=== PATIENT | male | born 1985 | race Caucasian/White ===

== ENCOUNTER 2018-02-11 22:24 | Emergency (ER) | payer OTHER ==
[~2018-02-11 22:24] MED LIST: AMLO-111 PO; BUPR-474 PO; CEPH-13 PO; FLUO-177 PO; KET10 PO; LOSA100T69 PO; PER PO; TRAM-420 PO
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
[2018-02-11 22:34] VITALS: BP 140/94
[2018-02-11] MEDS ORDERED: SERT-173 PO (22:40)
[2018-02-11 23:06] LABS: PLATELET COUNT, AUTOMATED 202 K/uL (150-450)
[2018-02-12] MEDS ORDERED: LOSA-44 PO (11:40)
== END 2018-02-12 02:29 ==
LOC: ER 22:36
DX: R45.851 Suicidal ideations (principal); F10.120 Alcohol abuse with intoxication, uncomplicated; Y90.6 Blood alcohol level of 120-199 mg/100 ml
CPT/HCPCS: 36415; 80305; 80320; 80329; 81001; 82040; 82247; 82310; 82374; 82435; 82565; 82947; 83735; 84075; 84132; 84155; 84295; 84443; 84450; 84460; 84520; 85025; 99284

== ENCOUNTER 2018-02-12 00:28 | Inpatient (IN) | payer OTHER ==
[~2018-02-12] VITALS: Ht 182.9 cm; Wt 90.7 kg
[~2018-02-12 00:28] MED LIST changes: +SERT-173 PO
[2018-02-12 00:45] VITALS: BP 143/113
[2018-02-12] MEDS ORDERED: DIAZEPAM 10 MG TAB PO ONE (00:50)
[2018-02-12] MEDS ORDERED: MAG HYD/AL HYD/SIMETH 30ML UDC PO PRN (00:50)
[2018-02-12] MEDS ORDERED: DIAZEPAM 10 MG TAB PO PRN (01:35)
[2018-02-12 07:50] VITALS: BP 128/92
[2018-02-12] MEDS: FOLIC ACID 1 MG TAB PO SCH (08:23)
[2018-02-12] MEDS: THIAMINE HCL 100 MG TAB PO SCH (08:23)
[2018-02-12] MEDS: MULTIVITAMINS TAB PO SCH (08:23)
[2018-02-12] MEDS ORDERED: LOSA-44 PO (11:40)
[2018-02-12 12:14] VITALS: BP 138/100
[2018-02-12] MEDS: HYDROCHLOROTHIAZIDE 25 MG TAB PO SCH (12:18)
[2018-02-12] MEDS: LOSARTAN POTASSIUM 50 MG TAB PO SCH (12:19)
[2018-02-12] MEDS: SERTRALINE HCL 50 MG TAB PO SCH (12:19)
[2018-02-12] MEDS: NICOTINE POLACRILEX 4 MG LOZG PO PRN (12:37)
[2018-02-12 16:40] VITALS: BP 92/58
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
[2018-02-12] MEDS: traZODone HCL 50 MG TAB PO SCH (20:36)
[2018-02-13 05:56] VITALS: BP 112/69
[2018-02-13 07:55] VITALS: BP 112/82
[2018-02-13] MEDS: HYDROCHLOROTHIAZIDE 25 MG TAB PO SCH (08:15)
[2018-02-13] MEDS: NICOTINE POLACRILEX 4 MG LOZG PO PRN ×2 (08:15→14:36)
[2018-02-13] MEDS: FOLIC ACID 1 MG TAB PO SCH (08:15)
[2018-02-13] MEDS: THIAMINE HCL 100 MG TAB PO SCH (08:15)
[2018-02-13] MEDS: SERTRALINE HCL 50 MG TAB PO SCH (08:15)
[2018-02-13] MEDS: LOSARTAN POTASSIUM 50 MG TAB PO SCH (08:15)
[2018-02-13] MEDS: MULTIVITAMINS TAB PO SCH (08:15)
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
[2018-02-13 10:21] LABS: PLATELET COUNT, AUTOMATED 179 K/uL (150-450)
--- NOTE | 2018-02-13 11:31 | B[facility] Progress Note ---
[facility] - Subjective Progress Notes Subjective Patient's alcohol withdrawal nearing completion, no suicidal ideation, will plan on discharge tomorrow. will set up outpatient care today. Patient sleep and appetite intact, mood improving. Suicidal Ideation: None Homicidal Ideation: None [facility] - Objective Physical Exam Vital Signs Hematology Test 02/13/18 10:15 Red Blood Count 5.19 M/uL (4.00-5.60) Mean Corpuscular Volume 91.4 fL (80.0-96.0) Mean Corpuscular Hemoglobin 31.8 pg (26.0-33.0) Mean Corpuscular Hemoglobin Concent 34.8 g/dL (32.0-36.0) Red Cell Distribution Width 13.9 % (11.5-14.5) Mean Platelet Volume 9.4 fL (7.2-11.1) Neutrophils (%) (Auto) 69.4 % (39.4-72.5) Lymphocytes (%) (Auto) 17.7 % (17.6-49.6) Monocytes (%) (Auto) 12.2 % (4.1-12.4) Eosinophils (%) (Auto) 0.3 % (0.4-6.7) Basophils (%) (Auto) 0.4 % (0.3-1.4) Nucleated RBC Relative Count (auto) 0.0 /100WBC Neutrophils # (Auto) 4.0 K/uL (2.0-7.4) Lymphocytes # (Auto) 1.0 K/uL (1.3-3.6) Monocytes # (Auto) 0.7 K/uL (0.3-1.0) Eosinophils # (Auto) 0.0 K/uL (0.0-0.5) Basophils # (Auto) 0.0 K/uL (0.0-0.1) Nucleated RBC Absolute Count (auto) 0.00 K/uL Sodium Level 140 mmol/L (137-145) Potassium Level 3.7 mmol/L (3.5-5.0) Chloride Level 97 mmol/L (98-107) Carbon Dioxide Level 33 mmol/L (22-30) Blood Urea Nitrogen 21 mg/dl (9-21) Creatinine 1.00 mg/dl (0.66-1.25) Glomerular Filtration Rate Calc > 60.0 Random Glucose 105 mg/dl (75-110) Calcium Level 9.4 mg/dl (8.4-10.2) Total Bilirubin 0.6 mg/dl (0.2-1.3) Aspartate Amino Transf (AST/SGOT) 39 U/L (0-35) Alanine Aminotransferase (ALT/SGPT) 71 U/L (0-56) Alkaline Phosphatase 66 U/L (0-126) Total Protein 6.5 g/dl (6.3-8.2) Albumin 3.8 g/dl (3.5-5.0) Chemistry Test 02/13/18 10:15 White Blood Count 5.8 k/uL (4.5-11.0) Red Blood Count 5.19 M/uL (4.00-5.60) Hemoglobin 16.5 g/dL (14.0-18.0) Hematocrit 47.4 % (42.0-52.0) Mean Corpuscular Volume 91.4 fL (80.0-96.0) Mean Corpuscular Hemoglobin 31.8 pg (26.0-33.0) Mean Corpuscular Hemoglobin Concent 34.8 g/dL (32.0-36.0) Red Cell Distribution Width 13.9 % (11.5-14.5) Platelet Count 179 K/uL (150-450) Mean Platelet Volume 9.4 fL (7.2-11.1) Neutrophils (%) (Auto) 69.4 % (39.4-72.5) Lymphocytes (%) (Auto) 17.7 % (17.6-49.6) Monocytes (%) (Auto) 12.2 % (4.1-12.4) Eosinophils (%) (Auto) 0.3 % (0.4-6.7) Basophils (%) (Auto) 0.4 % (0.3-1.4) Nucleated RBC Relative Count (auto) 0.0 /100WBC Neutrophils # (Auto) 4.0 K/uL (2.0-7.4) Lymphocytes # (Auto) 1.0 K/uL (1.3-3.6) Monocytes # (Auto) 0.7 K/uL (0.3-1.0) Eosinophils # (Auto) 0.0 K/uL (0.0-0.5) Basophils # (Auto) 0.0 K/uL (0.0-0.1) Nucleated RBC Absolute Count (auto) 0.00 K/uL Glomerular Filtration Rate Calc > 60.0 Calcium Level 9.4 mg/dl (8.4-10.2) Total Bilirubin 0.6 mg/dl (0.2-1.3) Aspartate Amino Transf (AST/SGOT) 39 U/L (0-35) Alanine Aminotransferase (ALT/SGPT) 71 U/L (0-56) Alkaline Phosphatase 66 U/L (0-126) Total Protein 6.5 g/dl (6.3-8.2) Albumin 3.8 g/dl (3.5-5.0) Vital Signs Date Time Temp Pulse Resp B/P (MAP) Pulse Ox O2 Delivery O2 Flow Rate FiO2 02/13/18 07:55 98.4 66 16 112/82 (92) 96 Room Air Muscle Strength and Tone: WNL Gait and Station: Steady [facility] Medications Reviewed: Side Effects, Benefits of Medication, Risks Allergies Reviewed: Yes Mental Status Exam General Appearance: Casual, Well Groomed, Good Eye Contact, Cooperative, Polite, Good Interaction; No Tearful, No Psychomotor Agitation, No Psychomotor Retardation, No Bizarre Mannerisms, No Tics Speech: Clear, Spontaneous, Normal Rate, Normal Rhythm, Normal Volume, Normal Tone; No Delayed, No Slurred, No Garbled, No Rambling, No Inappropriate Mood: Dysthmic/Depressed (improving. ) Affect: Full and Appropriate; No Sad, No Neutral, No Withdrawn, No Tearful, No Anxious Thought Process: Organized, Logical, Goal Directed; No Loose Associations, No Flight of Ideas Thought Content: Suicidal Ideation (Resolved); No Homicidal Ideation, No Delusions, No Auditory Halllucinations, No Visual Hallucinations, No Thought Broadcasting, No Ideas of Reference, No Obsessions, No Compulsions Sensorium: Clear Cognition: Alert & Oriented-Person, Alert & Oriented-Place, Alert & Oriented- Time, [id number]-[id number] Memory: Immediate, Recent, Remote Intelligence: Average Insight Judgment: Fair (improving, in absence of alcohol) Result Diagram: 02/13/18 1015 02/13/18 1015 [facility] Assessment and Plan [id number] Encounter Date: Feb 13, 2018 [id number] Encounter Time: 11:00 [facility] Plan: Necessary Precautions, Individual/Group Therapy, Admin/Titrate Meds, Educate Patient Tobacco Medications: Started Multpiple Antipsychotics Used: No Problems: (1) Partner relationship problem Optional Permanent Comment: divorce pending Last Edited By: Triston Lowry on Feb 13, 2018 11:29 Status: Chronic (2) Alcohol withdrawal (3) Alcohol use disorder, severe, dependence Status: Chronic (4) Adjustment disorder with mixed anxiety and depressed mood Optional Permanent Comment: verses persisting depressive disorder. Last Edited By: Triston Lowry on Feb 13, 2018 11:31 Status: Acute Condition 1. continue treatment. 2. plan for discharge tomorrow. Problem Qualifiers (1) Alcohol withdrawal: Complication of substance-induced condition: uncomplicated Qualified Codes: F10.230 - Alcohol dependence with withdrawal, uncomplicated TRISTON LOWRY MD Feb 13, 2018 11:31
[2018-02-13 11:50] VITALS: BP 113/62
[2018-02-13] MEDS: traZODone HCL 50 MG TAB PO SCH (20:17)
[2018-02-13 22:37] VITALS: BP 126/84
[2018-02-14 06:12] VITALS: BP 134/86
[2018-02-14] MEDS: MULTIVITAMINS TAB PO SCH (08:15)
[2018-02-14] MEDS: SERTRALINE HCL 50 MG TAB PO SCH (08:15)
[2018-02-14] MEDS: FOLIC ACID 1 MG TAB PO SCH (08:15)
[2018-02-14] MEDS: THIAMINE HCL 100 MG TAB PO SCH (08:15)
[2018-02-14] MEDS: HYDROCHLOROTHIAZIDE 25 MG TAB PO SCH (08:15)
[2018-02-14] MEDS: LOSARTAN POTASSIUM 50 MG TAB PO SCH (08:15)
[2018-02-14] MEDS ORDERED: TRAZ150T8 PO (09:21)
[2018-02-14] MEDS ORDERED: MULT-1379 PO (09:22)
[2018-02-14] MEDS ORDERED: SERT-173 PO (09:23)
[2018-02-14] MEDS ORDERED: NICO4LOZ35 BC (09:24)
--- NOTE | 2018-02-14 16:26 | DISCHARGE SUMMARY ---
Patient was seen at approximately 0800 hours on February 14, 2018 for note concerning this dictation. FINAL DIAGNOSES PER DSM-V Alcohol use disorder severe. Partner relational problem. Adjustment disorder with anxious and depressed mood. Legal and marital stressors. 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 Patient does have variable social support available. REASON FOR ADMISSION This is a pleasant 32-year-old male who was admitted under an emergency detainment after being picked up for a second DUI in a short amount of time. Patient reported to investigating officers that he was wanting to kill himself and had various plans. Patient brought to the emergency room without incident, patient admitted without incident. Alcohol withdrawal was treated to completion via [facility] protocol, was considered minimal to moderate in nature. Patient continued to improve. Patient was started on trazodone which seemed to help with sleep and possibly mood. Patient was continued on Zoloft. Patient giving a long history of alcohol use disorder and marital discord. Patient noted to be in the emergency room in 2014 under very similar circumstances. Patient having multiple stressors. He is getting currently, however, patient open to communicating this to friends and family members while on the unit. Patient did not want to go to residential rehab, but patient wanted to discharge to home. Patient agreed to abstain from all alcohol. Please see H and P for further details. PHYSICAL EXAMINATION GENERAL: Please see emergency room note. Notable for a 32-year-old male in no acute medical distress. Patient very upset, expressing suicidal ideation and patient intoxicated. VITAL SIGNS: At the time of admission, temperature 98.5, pulse 86, respiratory rate 20, blood pressure 140/94 and pulse oximetry 95 on room air. At the time of behavioral health discharge, temperature 97.8, pulse 55, respiratory rate 16, blood pressure 134/86 and pulse oximetry 95 on room air. LABORATORY DATA CBC on February 13, 2018 unremarkable. CMP notable for AST 39 and ALT 71 and elevated, otherwise unremarkable. At the time of admission, toxicology screen was negative with a serum alcohol level of 127. Urinalysis was unremarkable. MENTAL STATUS EXAMINATION AT THE TIME OF DISCHARGE GENERAL APPEARANCE, BEHAVIOR AND ATTITUDE: This is a calm, polite, cooperative 32-year-old male making good eye contact. No bizarre mannerisms or tics. No psychomotor agitation or retardation. No periods of tearfulness. Interacting well with sponsor from AA present as well as friend and [id number] present on phone. SPEECH: Within normal limits, regular rate, rhythm, volume and tone. MOOD: Described as frustrated over current condition and alcohol, but improved. AFFECT: Full at times and mood congruent. THOUGHT PROCESSES: Goal directed, logical. No loose associations or flight of ideas. THOUGHT CONTENT: Free of auditory or visual hallucinations, ideas of reference, thought broadcastings, delusions, obsessions, compulsions. Patient adamantly denying any suicidal intent or ideation. Denying homicidal ideation. SENSORIUM: Clear. COGNITION: Alert and oriented to person, place, time and situation. MEMORY: Immediate, recent and remote estimated intact. INTELLIGENCE: Average based on interview. INSIGHT AND JUDGMENT: Considered grossly intact in the absence of alcohol use. RESULTS OF TESTING IMAGING: None. LABORATORY DATA: See above. CONSULTATIONS: None. TREATMENT Patient received medications, participated in individual and group therapy. HOSPITAL COURSE Initially patient frustrated with current condition. Patient remaining cooperative overall. Alcohol withdrawal was treated to completion with diazepam per [facility] protocol and was considered minimal in nature. Patient was then started on trazodone, continued on Zoloft as well as antihypertensive medication. Patient continued to improve. CONDITION OF PATIENT ON DISCHARGE Stable. Considered minimal risk to himself or others in the absence of alcohol use. DISPOSITION Patient discharged to home. Patient would follow up with patient providers for medication and therapy. Patient would attend . Patient in contact with his sponsor. Firearms were removed from the home by family friends. Patient would abstain from all alcohol use. Given the crisis line should symptoms return. Patient would continue on Cozaar 100 mg daily which he has at home, trazodone 50-150 mg p.o. every night at bedtime p.r.n. for insomnia, and multivitamin with mineral daily. Patient would continue Zoloft which he had at home at 100 mg daily as well. Patient encouraged to stop chewing tobacco and use nicotine replacement. Risks, benefits and alternatives of the above discharge plan were discussed. Informed consent was given to proceed with above discharge plan by this competent patient. BRAYAN
== END 2018-02-14 10:44 | disposition home or self-care (01) | DRG 897 ==
LOC: BHS 00:28
PROVIDERS: ADMIT Psychiatry & Neurology Psychiatry; ATTEND Psychiatry & Neurology Psychiatry
DX: F10.230 Alcohol dependence with withdrawal, uncomplicated (principal); R45.851 Suicidal ideations; F43.23 Adjustment disorder with mixed anxiety and depressed mood; F34.1 Dysthymic disorder; I10 Essential (primary) hypertension; G47.00 Insomnia, unspecified; Y90.6 Blood alcohol level of 120-199 mg/100 ml; Z72.0 Tobacco use; Z88.8 Allergy status to other drugs, medicaments and biological substances; Z91.018 Allergy to other foods; Z63.0 Problems in relationship with spouse or partner; Z65.3 Problems related to other legal circumstances; F10.229 Alcohol dependence with intoxication, unspecified
CPT/HCPCS: 36415; 82040; 82247; 82310; 82374; 82435; 82565; 82947; 84075; 84132; 84155; 84295; 84450; 84460; 84520; 85025